=== PATIENT | male | born 1970 | race African-American/Black ===

== ENCOUNTER 2021-10-26 07:51 | Emergency (ER) | payer SELFPAY ==
[2021-10-26 08:18] VITALS: BMI 26.5
[2021-10-26] MEDS ORDERED: SODIUM CHLORIDE 1,000 ML IV STA (09:00)
[2021-10-26] MEDS ORDERED: DIPHTH,PERTUSS(ACELL),TET 0.5 ML DISP.SYRIN IM ONE ×2 (09:00→09:13)
[2021-10-26 10:40] LABS: CHLORIDE 105 mmol/L (98-107); SODIUM 139 mmol/L (136-145)
[2021-10-26 10:42] LABS: CALCIUM 8.7 mg/dL (8.5-10.1)
[2021-10-26 10:43] LABS: ALBUMIN 3.4 g/dl (3.4-5.0); ANION GAP 7 MMOL/L (8-16); BLOOD UREA NITROGEN 14.8 mg/dL (7-18); CO2 27 mmol/L (21-32); GLUCOSE,RANDOM 99 mg/dL (74-106)
[2021-10-26 10:44] LABS: BASO % 0.5 % (0-2.0); EOS % 0.2 % (0-4.5); HEMATOCRIT 38.8 % (35.4-49); HEMOGLOBIN 13.6 GM/dL (11.7-16.9); LYMPH % 15.8 % (8-40); MCH 31.8 pg (25.7-33.7); MCHC 35.2 g/dl (32.0-35.9); MEAN CELL VOLUME 90.4 fl (80-96); MONO % 10.5 % (3.8-10.2); PLATELET COUNT 182 10^3/uL (134-434); RBC 4.29 M/mm3 (4.00-5.60); RDW 14.2 % (11.9-15.9); WHITE BLOOD COUNT 6.9 K/mm3 (4.0-10.0)
[2021-10-26 10:45] LABS: CREATININE 1.3 mg/dL (0.55-1.3)
[2021-10-26 10:46] LABS: SGOT/AST 28 U/L (15-37); SGPT/ALT 40 U/L (13-61)
[2021-10-26 10:47] LABS: BILIRUBIN,TOTAL 0.4 mg/dL (0.2-1); TOT PROT 7.9 g/dl (6.4-8.2)
[2021-10-26 10:48] LABS: ALK PHOS 45 U/L (45-117)
[2021-10-26 15:09] VITALS: BP 125/86; PULSE 86; TEMP 98.8
== END 2021-10-26 15:10 | disposition home or self-care (01) ==
LOC: JER 07:51
PROC: 0HQ0XZZ Repair Scalp Skin, External Approach (ICD-10-PCS; principal; 2021-10-26)
PROC: 3E0234Z Introduction of Serum, Toxoid and Vaccine into Muscle, Percutaneous Approach (ICD-10-PCS; 2021-10-26)
DX: R55 Syncope and collapse (principal); S09.90XA Unspecified injury of head, initial encounter; S01.01XA Laceration without foreign body of scalp, initial encounter; Y99.9 Unspecified external cause status
CPT/HCPCS: 36415; 70450-TC; 72125-TC; 72131-TC; 80053; 82550; 82553; 84484; 85025; 90715; 93005; 93010; 99285-25; C9803; U0003; U0005